=== PATIENT | male | born 1975 | race Caucasian/White ===

== ENCOUNTER 2018-06-30 02:15 | Emergency (ER) | payer MEDICAID, OTHER ==
[~2018-06-30] VITALS: Wt 64.7 kg
[2018-06-30] MEDS ORDERED: IBUPROFEN 600 MG TAB PO ONE (03:30)
[2018-06-30] MEDS ORDERED: MECLIZINE 12.5 MG TAB PO ONE (03:30)
--- NOTE | 2018-06-30 03:31 | ERD ---
ER Documentation Chief Complaint Chief Complaint C/O "HEAVY HEAD", DIZZINESS X'S 2 DAYS HPI 43-year-old male presenting with dizziness for the past 3 days. He states he has a pressure in the back of his head that has been intermittent and started 3 days ago. It was gradual in onset. He does not describe it as a pain, more of a pressure. No alleviating or exacerbating factors. He also has associated dizziness that he describes as the room is moving when he moves. He denies any associated vision disturbance, focal weakness or numbness, nausea, or vomiting. His symptoms are only present when he gets out of bed or changes positions. He also has a pressure in his left ear but no tinnitus. No earache. No recent URI. No fevers or chills. No neck stiffness. ROS All systems reviewed and are negative except as per history of present illness. Medications Home Meds Active Scripts Meclizine Hcl* (Antivert*) 12.5 Mg Tab, 25 MG PO Q6H PRN for DIZZINESS, #20 TAB Prov:SAHIL SAGASTUME MD 06/30/18 PMhx/Soc Medical and Surgical Hx: pt denies Surgical Hx History of Surgery: No Anesthesia Reaction: No Hx Neurological Disorder: No Hx Respiratory Disorders: No Hx Cardiac Disorders: Yes (HYPERTENSION, HYPERLIPIDEMIA) Hx Psychiatric Problems: No Hx Miscellaneous Medical Probl: No Hx Alcohol Use: Yes (SOCIALLY) Hx Substance Use: No Hx Tobacco Use: No Smoking Status: Never smoker FmHx Family History: No diabetes Physical Exam Vitals Vital Signs Date Temp Pulse Resp B/P (MAP) Pulse Ox O2 O2 Flow FiO2 Time Delivery Rate 06/30/18 56 18 108/83 100 Room Air 05:14 (91) 06/30/18 56 18 128/90 100 Room Air 02:25 (103) 06/30/18 97.6 66 18 141/90 98 02:19 (107) Physical Exam Const: No acute distress Head: Atraumatic Eyes: Normal Conjunctiva, PERRLA, EOMI, no nystagmus ENT: Normal External Ears, Nose and Mouth. TMs normal bilaterally Neck: Full range of motion. No meningismus. Resp: Clear to auscultation bilaterally Cardio: Regular rate and rhythm, no murmurs. 2+ distal pulses in all 4 extremities Abd: Soft, non tender, non distended. Normal bowel sounds Skin: No petechiae or rashes Back: No midline or flank tenderness Ext: No cyanosis, or edema Neur: Awake and alert, oriented x3, cranial nerves intact, strength and sensations intact in all 4 extremities. Normal cerebellar exam with rapid alternating movements and finger to nose. Normal steady gait Psych: Normal Mood and Affect Results 24 hrs Current Medications Medications Dose Sig/Marquis Start Time Status Last (Trade) Ordered Route PRN Stop Time Admin Dose Reason Admin Meclizine 25 mg ONCE ONCE 06/30/18 DC 06/30/18 HCl PO 03:30 03:23 (Antivert) 06/30/18 03:31 Ibuprofen 600 mg ONCE ONCE 06/30/18 DC 06/30/18 (Motrin) PO 03:30 03:23 06/30/18 03:31 Procedures/MDM EMERGENT LABS AND DIAGNOSTIC STUDIES: Initial Nursing notes reviewed. Previous Medical Records requested via the Electronic Health Record. EMERGENCY DEPARTMENT COURSE / MEDICAL DECISION MAKING: Patient is presenting with what seems to be benign positional vertigo. I have a low suspicion for acute stroke or increased intracranial pressure. Vitals are unremarkable. Neurologic exam was normal. He was treated with meclizine and ibuprofen. Upon reevaluation, patient's neurologic symptoms have stabilized while they have been evaluated in the department and are appropriate for outpatient work up. No evidence of meningitis, intracranial bleed, seizure, str brea, or elevated intracranial pressure. Rx for meclizine given. Return precautions discussed. Follow-up with PCP recommended within the next 2-3 days. Patient's blood pressure was elevated (>120/80) but appears stable without evidence of hypertensive emergency or urgency. The patient was counseled about the risks of hypertension and urged to pursue outpatient monitoring and therapy within a week with their primary care physician. Departure Diagnosis: Primary Impression: Positional vertigo Condition: Stable EKSAHIL MCKINNON MD Jun 30, 2018 03:31
[2018-06-30] MEDS ORDERED: MECL12.574 PO (05:07)
[2018-06-30 05:14] VITALS: BP 108/83; PULSE 56; RESP 18
== END 2018-06-30 05:19 | disposition home or self-care (01) ==
LOC: FTE 02:15
DX: R42 Dizziness and giddiness (principal); R40.2142 Coma scale, eyes open, spontaneous, at arrival to emergency department; R40.2362 Coma scale, best motor response, obeys commands, at arrival to emergency department; R40.2252 Coma scale, best verbal response, oriented, at arrival to emergency department; I10 Essential (primary) hypertension
CPT/HCPCS: Z7502; Z7610; 99282